=== PATIENT | male | born 1955 | race Caucasian/White ===

== ENCOUNTER 2018-02-17 12:24 | Emergency (ER) | payer OTHER ==
[2018-02-17 12:35] VITALS: BP 152/87
--- NOTE | 2018-02-17 12:37 | ED Physician Documentation ---
General Adult - HISTORIAN Historian: patient - HPI Stated Complaint: R arm pain Chief Complaint: General Adult Onset: days ago (2) Timing: still present Severity: moderate Further Comments: yes (Pt is a 62 yo male with R elbow/arm pain. No known injury. Pt was doing yard work all day 2 days ago, but uses a riding mower and can't explain why he might have elbow pain.) - ROS CONST: no problems EYES/ENT: none CVS/RESP: none GI/: none MS/SKIN/LYMPH: other (R elbow pain) - PAST HX Past History: other (hx cancer ) Allergies/Adverse Reactions: Allergies Allergy/AdvReac Type Severity Reaction Status Date / Time No Known Allergies Allergy Verified 02/17/18 12:35 Home Medications: Ambulatory Orders Medication Instructions Recorded NK 12/22/12 - SOCIAL HX Smoking History: quit greater than 1 year Alcohol Use: other (daily) - FAMILY HX Family History: No - VITAL SIGNS Vital Signs: Vital Signs Temp Pulse Resp BP Pulse Ox 96.0 F L 100 H 15 152/87 96 02/17/18 12:32 02/17/18 12:32 02/17/18 12:32 02/17/18 12:32 02/17/18 12:32 - REVIEWED ASSESSMENTS Nursing Assessment Reviewed: Yes Vitals Reviewed: Yes Progress - Progress Progress: X-ray R elbow: History: Posterior elbow pain. No injury. Three views of the right elbow were obtained. There is no evidence for acute fracture or dislocation. There is a quite small olecranon spur. No soft tissue swelling. No joint effusion. 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 Impression: No acute osseous abnormalities are noted. Tiny olecranon spur. 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 Toradol 30 mg IM Sling d/c instructions: Ibuprofen 200 mg. Take 2 or 3 every 8 hours with food. (May take Aleve instead, 1 every 12 hours.) Sling May use Tennis Elbow Strap. General Adult Physical Exam - PHYSICAL EXAM GENERAL APPEARANCE: moderate distress NECK: normal inspection, supple RESPIRATORY: no resp distress, chest non-tender, breath sounds normal CVS: reg rate & rhythm, heart sounds normal BACK: normal inspection SKIN: warm/dry, normal color EXTREMITIES: other (Lateral R elbow tenderness, no effusion; increase pain in elbow with "doorknob" maneuver, turning wrist against resistance.) NEURO: oriented X3, motor nml, sensation nml Discharge Clincal Impression: tennis elbow (lateral epicondylitis), R elbow Referrals: Michelle Major MD [Primary Care Provider] - Condition: Good Disposition: 01 HOME, SELF-CARE Decision to Admit: NO Decision Time: 13:22
[2018-02-17] MEDS ORDERED: KETOROLAC TROMETHAMINE 30 MG/1ML VIAL IM ONE (13:19)
--- NOTE | 2018-02-17 19:32 | Diagnostic Imaging Report ---
DARON VALLES [facility] [id number] [facility] [address] [id number] Report Submission Date: Feb 17, 2018 1:09:44 PM CDT Patient Study Name: KALEB BAER Date: Feb 17, 2018 12:41:55 PM CDT Modality Type: DX Gender: M Description: UPPER EXTREMITY : 53 Institution: [facility] Physician: DARON VALLES Right elbow History: Posterior elbow pain. No injury Three views of the right elbow were obtained. There is no evidence for acute fracture or dislocation. There is a quite small olecranon spur. No soft tissue swelling. No joint effusion. 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 Impression: No acute osseous abnormalities are noted. Tiny olecranon spur. 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 Electronically signed on Feb 17, 2018 1:09:44 PM CDT by: Stacy ALVAREZ
== END 2018-02-17 13:31 | disposition home or self-care (01) ==
LOC: ED 12:24
DX: M77.11 Lateral epicondylitis, right elbow (principal)
CPT/HCPCS: 73080; J1885; 96372; 99283